=== PATIENT | male | born 1960 | race Caucasian/White ===

== ENCOUNTER 2016-04-05 23:13 | Emergency (ER) | payer OTHER ==
[~2016-04-05] VITALS: Ht 170.2 cm; Wt 94.6 kg
[2016-04-06] MEDS ORDERED: HYDROCHLOROTHIA25 MG PO (00:01)
[2016-04-06] MEDS ORDERED: ROSUVASTATIN CA40 MG PO (00:01)
[2016-04-06] MEDS ORDERED: NAPROXEN500 MG PO (00:49)
[2016-04-06] MEDS ORDERED: KEFLEX500 MG PO (00:49)
[2016-04-06 00:59] VITALS: BP 170/99
== END 2016-04-06 01:00 | disposition home or self-care (01) ==
LOC: EME 23:13
DX: L03.116 Cellulitis of left lower limb (principal)
CPT/HCPCS: 73564; 99281; 99284; J0696

== ENCOUNTER 2016-04-30 06:07 | Emergency (ER) | payer OTHER ==
[~2016-04-30] VITALS: Ht 170.2 cm; Wt 93.3 kg
[~2016-04-30 06:07] MED LIST: HYDROCHLOROTHIA25 MG PO; KEFLEX500 MG PO; NAPROXEN500 MG PO; ROSUVASTATIN CA40 MG PO
[2016-04-30] MEDS ORDERED: CO Q10100 MG PO (07:08)
[2016-04-30] MEDS ORDERED: CRESTOR20 MG PO (07:09)
[2016-04-30] MEDS ORDERED: FISH OIL 1,0001 EAC7 PO (07:10)
[2016-04-30] MEDS ORDERED: ULORIC40 MG PO (07:12)
[2016-04-30 07:58] LABS: EOSINOPHIL (%) 0.7 % (0-5); EOSINOPHIL COUNT 0.1 K/uL (0-0.3); IMMATURE GRANULOCYTE (%) 0.5 % (0.0-0.7); IMMATURE GRANULOCYTE COUNT 0.1 K/uL; INSTRUMENT ABS NEUTROPHIL CT 9.5 K/uL; LYMPHOCYTE COUNT 1.8 K/uL (1.0-2.8); MCH 27.6 PG (29.0-34.0); MCHC 33.8 G/DL (30.0-36.0); MCV 81.6 FL (86-99); MEAN PLAT.VOLUME 11.4 uM^3 (9.0-12.4); MONOCYTE (%) 10.8 % (3-12); MONOCYTE COUNT 1.4 K/uL (0-0.8); NEUTROPHIL (%) 73.7 % (45-76); NEUTROPHIL COUNT 9.5 K/uL (1.8-6.4); PLATELET COUNT 230 K/uL (156-360); RBC DIS.WIDTH-CV 12.3 % (11.8-14.6); RBC DIS.WIDTH-SD 36.7 % (39-53); RED BLOOD COUNT 5.88 M/uL (4.00-5.50); WHITE BLOOD COUNT 12.9 K/uL (4.1-10.2)
[2016-04-30 08:19] LABS: CHLORIDE 103 mEq/L (99-109); POTASSIUM 3.6 mEq/L (3.7-5.4); SODIUM 140 mEq/L (136-147)
[2016-04-30 08:20] LABS: GLUCOSE 93 mg/dL (70-99)
[2016-04-30 08:24] LABS: GFR ESTIMATE (CALCULATED) > 59 mL/min/
[2016-04-30 08:25] LABS: UREA NITROGEN (BUN) 29 mg/dL (9-23)
[2016-04-30 08:27] LABS: ANION GAP 12 MEQ/L (2-14); URIC ACID 4.3 mg/dL (3.1-9.2)
[2016-04-30] MEDS ORDERED: MOTRIN800 MG PO (10:02)
[2016-04-30 10:17] VITALS: BP 158/99
[2016-04-30 10:54] LABS: LYME DISEASE SEROLOGY SCREEN NEGATIVE (NEGATIVE)
== END 2016-04-30 10:19 | disposition home or self-care (01) ==
LOC: EME 06:07
PROVIDERS: Emergency Medicine
DX: M25.572 Pain in left ankle and joints of left foot (principal)
CPT/HCPCS: 73610; 80048; 84550; 85025; 86618; 99281; 99283